=== PATIENT | female | born 1990 | race Caucasian/White ===

== ENCOUNTER 2017-07-25 21:21 | Emergency (ER) | payer BC, MEDICAID ==
[~2017-07-25] VITALS: Ht 162.6 cm; Wt 53.1 kg
[2017-07-25 21:38] VITALS: BP 115/82
[2017-07-25 22:38] LABS: Basophils # (auto) 0.1 uL; Basophils % (auto) 0.8 % (0.0-2.0); Eosinophils # (auto) 0.1 uL; Hematocrit 42.8 % (36.0-46.0); Hemoglobin 14.7 g/dL (12.2-16.2); Lymphocytes # (auto) 2.9 uL; Lymphocytes % (auto) 38.5 % (10.0-50.0); Mean Corpuscular Hemoglobin 31.8 pg (28.0-32.0); Mean Corpuscular Hgb Conc. 34.5 g/dL (32.0-36.0); Mean Corpuscular Volume 92.1 fL (80.0-100.0); Monocytes # (auto) 0.5 uL; Monocytes % (auto) 6.5 % (0.0-12.0); Neutrophils # (auto) 3.9 uL; Neutrophils % (auto) 52.2 % (37.0-80.0); Platelet Count (auto) 262 10^3/uL (140-450); Red Blood Cells 4.64 10^6/uL (4.0-5.20); Red Cell Distribution Width 12.9 % (11.8-14.3); White Blood Cell 7.4 10^3/uL (4.4-10.8)
[2017-07-25 22:39] LABS: Urine Bacteria FEW /hpf (None Seen); Urine Blood Negative /uL (Negative); Urine Mucus FEW (None Seen); Urine Specific Gravity 1.025 (1.001-1.035); Urine WBC 45 /hpf (0 - 5)
[2017-07-25 22:44] LABS: INR 0.97 (0.9-1.15); Partial Thromboplastin Time 27.9 sec (22.64-33.71); Prothrombin Time 10.6 sec (9.37-12.3)
[2017-07-25 22:47] LABS: Albumin 4.5 g/dL (3.4-5.0); Calcium 9.4 mg/dL (8.5-10.1); Potassium 3.5 mmol/L (3.5-5.1)
[2017-07-25 22:50] LABS: Bilirubin, Total 0.3 mg/dL (0.2-1.0); Total Protein 7.8 g/dL (6.4-8.2)
[2017-07-26] MEDS ORDERED: cefTRIAXone SOD 1,000 MG VL IM ONE (00:45)
[2017-07-26] MEDS ORDERED: PHENAZOPYRIDINE HCL 100 MG TAB PO ONE (00:45)
== END 2017-07-26 01:26 | disposition home or self-care (01) ==
LOC: ER 21:21
DX: N39.0 Urinary tract infection, site not specified (principal)
CPT/HCPCS: 36415; 74176; 80053; 81001; 81025; 84702; 85025; 85610; 85730; 96372; 99285; J0696